=== PATIENT | male | born 1940 ===

== ENCOUNTER 2018-09-13 16:37 | Emergency (ER) | payer MEDICARE ==
[~2018-09-13] VITALS: Ht 177.8 cm; Wt 61.2 kg
[2018-09-13 17:21] LABS: Alanine Aminotransfer (ALT/SGP 28 U/L (12-78); Albumin/Globulin Ratio 1.4 (0.8-1.8); Alk Phos 86 U/L (50-136); Anion Gap 4 mmol/L (6-16); Aspartate Aminotrans (AST/SGOT 14 U/L (12-37); BASOPHILS ABSOLUTE AUTO 0.04 K/mm3 (0.00-0.23); BASOPHILS PERCENT AUTO 1 % (0-2); Bilirubin, Total 0.6 mg/dL (0.1-1.0); Blood Urea Nitrogen 20 mg/dL (8-24); Bun/Creatinine Ratio 16.9 (12.0-20.0); CO2, Blood 28 mmol/L (21-32); Calcium, Blood 8.3 mg/dL (8.5-10.1); Chloride, Blood 110 mmol/L (98-108); Creatinine, Blood 1.18 mg/dL (0.60-1.20); EOSINOPHILS ABSOLUTE AUTO 0.08 K/mm3 (0.00-0.68); EOSINOPHILS PERCENT AUTO 1 % (0-6); Ethanol (Alcohol), Blood, Med 5 mg/dL; Globulin, Blood 2.8 g/dL (2.2-4.0); Glomerular Filtration Rate >60 (60-); Glucose, Blood 134 mg/dL (70-99); Hematocrit 42.4 % (37.0-53.0); Hemoglobin 14.3 g/dL (13.5-17.5); IMMATURE GRAN ABSOLUTE AUTO 0.01 K/mm3 (0.00-0.10); IMMATURE GRAN PERCENT AUTO 0 % (0-1); International Normalized Ratio 1.11; LYMPHOCYTES ABSOLUTE AUTO 1.49 K/mm3 (0.84-5.20); LYMPHOCYTES PERCENT AUTO 25 % (21-46); MONOCYTES ABSOLUTE AUTO 0.52 K/mm3 (0.16-1.47); MONOCYTES PERCENT AUTO 9 % (4-13); Mean Corpuscular HGB 35.2 pg (26.0-34.0); Mean Corpuscular HGB Conc 33.7 g/dL (31.5-36.5); Mean Corpuscular Volume 104 fL (80-100); Mean Platelet Volume 10.6 fL (9.1-12.4); NEUTROPHILS ABSOLUTE AUTO 3.88 K/mm3 (1.96-9.15); NEUTROPHILS PERCENT AUTO 64 % (41-73); Platelet Count 149 K/mm3 (150-400); Prothrombin Time Results 11.4 Sec (9.7-11.5); RDW Coefficient Variation 11.3 % (11.7-14.2); RDW Standard Deviation 43.8 fL (35.1-46.3); Red Blood Cell Count 4.06 M/mm3 (4.30-5.90); Sodium, Blood 142 mmol/L (136-145); Total Protein, Blood 6.8 g/dL (6.4-8.2); White Blood Cell Count 6.02 K/mm3 (4.00-11.30)
[2018-09-13] MEDS ORDERED: ELIQUIS5 MG PO (17:52)
[2018-09-13] MEDS ORDERED: SIMV40 PO (17:54)
[2018-09-13] MEDS ORDERED: ZONI100 PO (17:54)
[2018-09-13] MEDS ORDERED: SERT100 PO (17:54)
[2018-09-13] MEDS ORDERED: CLARITIN10 MG PO (17:55)
[2018-09-13 20:10] LABS: Source, Urine Catheter
[2018-09-13 20:15] LABS: Appearance, Urine Clear (Clear); Bilirubin, Urine Neg (Neg); Blood, Urine 1+ (Neg); Color, Urine Yellow (P-Yellow); Glucose Qualitative, Urine Neg (Neg); Ketones, Urine Neg (Neg); Leukocyte Esterase, Urine Neg (Neg); Nitrite, Urine Neg (Neg); Protein, Urine 3+ (Neg); Specific Gravity, Urine 1.015 (1.003-1.022); Urobilinogen, Urine NORM (Normal)
[2018-09-13 20:29] LABS: Amorphous Light (0-Heavy); Bacteria Few /hpf; Red Blood Cells, Urine 0-2 /hpf (0-2); Squamous Epithelial Cells Few /hpf (Few); White Blood Cells, Urine Not Seen /hpf (0-5)
[2018-09-13 23:02] LABS: PO2 Arterial 206 mmHg (80-100); pH Blood Arterial 7.51 (7.35-7.45)
== END 2018-09-14 00:30 | disposition short-term general hospital (02) ==
LOC: ER 16:37
PROVIDERS: Emergency Medicine
DX: G40.901 Epilepsy, unspecified, not intractable, with status epilepticus (principal); I48.91 Unspecified atrial fibrillation; Z79.899 Other long term (current) drug therapy; Z79.01 Long term (current) use of anticoagulants; Z79.82 Long term (current) use of aspirin
CPT/HCPCS: 31500; 31720; 36415; 36600; 51702; 70450; 70496; 70498; 71045; 80053; 81001; 82803; 85025; 85610; 93005; 93010; 94002; 96365; 96375; 99291-25; 99292; G0480; J0330; J1953; J2060; Q9967